=== PATIENT | male | born 1980 | race Caucasian/White ===

== ENCOUNTER 2024-05-07 09:00 | Day surgery (SDC) | payer OTHER, SELFPAY ==
[2024-05-06 12:14] VITALS: BMI 31.0
[2024-05-07] VITALS (9 sets, daily range): BP systolic 104–134; BP diastolic 71–94; PULSE 74–106; RESP 12–25; TEMP 36.3–36.6; O2SAT 96–100; BMI 29.9
[2024-05-07] MEDS: DiphenhydrAMINE INJ 50 MG/ML VIAL 25 MG IV (11:16)
[2024-05-07] MEDS: ONDANSETRON INJ 2 MG/ML INJ 2 ML 4 MG IV (11:16)
[2024-05-07] MEDS: fentaNYL CIT INJ 50 mCg/ML AMP 2ML (ASD USE ONLY) IV (11:17)
[2024-05-07] MEDS: MIDAZOLAM INJ 1 MG/ML VIAL 2 ML (ASD USE ONLY) 2 MG IV (11:18)
--- NOTE | 2024-05-07 14:55 | SUR.PHASEII ---
1125: Pt received for recovery. Report from Pricila CARDONA. Pt groggy. Easily aroused with eye opening then will drift to sleep. Resp even, unlabored. VS stable. Passing small amounts of flatus. Denies pain. 1150: Pt more awake, alert. VS stable. Denies pain. Sitting up tolerating po fluids with no difficulty swallowing and no n/v. 1115: Pt fully awake, oriented x3. Pt was assisted to restroom. Ambulation steady. Pt dressed and in transport chair. Pt and stated understanding of discharge instruction. Pt discharged from [facility] in stable condition.
== END 2024-05-07 12:15 | disposition home or self-care (01) ==
PROVIDERS: PCP Registered Nurse; Referring Provider Specialist; Visit Provider Specialist
PROC: 0DBE8ZX Excision of Large Intestine, Via Natural or Artificial Opening Endoscopic, Diagnostic (ICD-10-PCS; CPT 45380; principal; 2024-05-07 09:30)
DX: Z12.11 Encounter for screening for malignant neoplasm of colon (principal); Z80.0 Family history of malignant neoplasm of digestive organs; D12.4 Benign neoplasm of descending colon; K64.9 Unspecified hemorrhoids; K57.30 Diverticulosis of large intestine without perforation or abscess without bleeding
CPT/HCPCS: 45385; 45380; J1200; J2250; J2405; J3010